=== PATIENT | female | born 2000 | race American Indian/Alaskan Native ===

== ENCOUNTER 2021-05-25 17:19 | Emergency (ER) | payer MEDICAID ==
[2021-05-25 18:34] VITALS: BP 146/60
--- NOTE | 2021-05-25 20:52 | Emergency Department Report ---
ED Abdominal Pain HPI - General Chief Complaint: Abdominal Pain Stated Complaint: ABDOMINAL PAIN Time Seen by Provider: 05/25/21 20:41 Source: patient Mode of arrival: Ambulatory Limitations: No Limitations - History of Present Illness Initial Comments: 20-year-old abdomen female that emerge department complaining of a 2-day history of left lower quadrant abdominal pain which she states may be secondary to constipation as her last bowel movement was A couple days ago. She is also unsure she reports having some nausea but she thinks it was probably secondary to her alcohol binge on this past Tuesday she reports no hemoptysis no hematemesis hematochezia, no diarrhea no no fever, chills, sweats. She reports an uncertainty about at this time. States that this is not her usual urinary tract infection symptoms but she does have a history of recurrent frequent urinary tract infections. MD Complaint: abdominal pain Location: LLQ, suprapubic Radiation: none Migration to: no migration Severity scale (0 -10): 10 Quality: cramping, aching Consistency: constant Improves With: nothing Worsens With: nothing Associated Symptoms: constipation. denies: nausea, diarrhea, hematochezia, hematuria, anorexia - Related Data Previous Rx's Medication Instructions Recorded Last Taken Type Hydrocortisone Acetate [Proctocort 30 mg RC TID #1 tube 10/12/16 Unknown Rx SUPPOS] Hydrocortisone [Proctosol-Hc] 28.35 gm RC TID #1 tube 10/12/16 Unknown Rx Ibuprofen [Motrin 600 MG tab] 600 mg PO Q8H PRN #14 tablet 10/12/16 Unknown Rx polyethylene glycoL 3350 [Miralax 17 gm PO QDAY #1 bottle 10/12/16 Unknown Rx 3350] Lactulose [Cephulac] 30 gm PO Q6HR #450 ml 05/25/21 Unknown Rx Nitrofurantoin Gallia/M-Cryst 100 mg PO Q12HR #20 capsule 05/25/21 Unknown Rx [Macrobid CAP] Phenazopyridine [Pyridium] 200 mg PO TID #9 tab 05/25/21 Unknown Rx ED Review of Systems ROS: Stated complaint: ABDOMINAL PAIN Other details as noted in HPI Comment: All other systems reviewed and negative ED Past Medical Hx - Social History Smoking Status: Never Smoker Substance Use Type: None - Medications Home Medications: Home Medications Medication Instructions Recorded Confirmed Last Taken Type Hydrocortisone Acetate [Proctocort 30 mg RC TID #1 tube 10/12/16 Unknown Rx SUPPOS] Hydrocortisone [Proctosol-Hc] 28.35 gm RC TID #1 tube 10/12/16 Unknown Rx Ibuprofen [Motrin 600 MG tab] 600 mg PO Q8H PRN #14 tablet 10/12/16 Unknown Rx polyethylene glycoL 3350 [Miralax 17 gm PO QDAY #1 bottle 10/12/16 Unknown Rx 3350] Lactulose [Cephulac] 30 gm PO Q6HR #450 ml 05/25/21 Unknown Rx Nitrofurantoin Gallia/M-Cryst 100 mg PO Q12HR #20 capsule 05/25/21 Unknown Rx [Macrobid CAP] Phenazopyridine [Pyridium] 200 mg PO TID #9 tab 05/25/21 Unknown Rx ED Physical Exam - General Limitations: No Limitations General appearance: alert, in no apparent distress - Head Head exam: Present: atraumatic, normocephalic - Eye Eye exam: Present: normal appearance, PERRL, EOMI - ENT ENT exam: Present: normal exam, mucous membranes moist - Neck Neck exam: Present: normal inspection, full ROM, lymphadenopathy - Respiratory Respiratory exam: Present: normal lung sounds bilaterally. Absent: respiratory distress - Cardiovascular Cardiovascular Exam: Present: regular rate, normal rhythm. Absent: systolic murmur, diastolic murmur, rubs, gallop - GI/Abdominal GI/Abdominal exam: Present: soft, normal bowel sounds - Extremities Exam Extremities exam: Present: normal inspection, normal capillary refill - Back Exam Back exam: Present: normal inspection. Absent: CVA tenderness (R), CVA tenderness (L) - Neurological Exam Neurological exam: Present: alert, oriented X3, CN II-XII intact, normal gait - Psychiatric Psychiatric exam: Present: normal affect, normal mood. Absent: anxious, flat affect - Skin Skin exam: Present: warm, dry, intact, normal color. Absent: rash, cyanosis, diaphoretic ED Course Vital Signs 05/25/21 18:30 Pulse Rate 62 Respiratory 18 Rate Blood Pressure 146/60 [Right] O2 Sat by Pulse 100 Oximetry ED Medical Decision Making - Lab Data Result diagrams: 05/25/21 20:51 05/25/21 20:51 - Radiology Data Radiology results: report reviewed [facility] [address] [place] [address] XRay Report Signed Patient: RICH KING MR# : [id number] : 2000 Acct:[id number] Age/Sex: 20 / F ADM Date: 05/25/21 Loc: ED Attending Dr: Ordering Physician: GIOVANI GUZMAN Date of Service: 05/25/21 Procedure(s): XR abd series w cxr 1V Accession Number(s): [id number] cc: GIOVANI GUZMAN Fluoro Time In Minutes: ABDOMEN 2 VIEW WITH PA CHEST, 05/25/2021 INDICATION / CLINICAL INFORMATION: constipation abd pain. COMPARISON: None available. FINDINGS: PA view of the chest is unremarkable. Cardiac silhouette and pulmonary vascularity are normal. Both lungs are well-expanded and are clear. Abdomen supine and erect: Bowel gas pattern demonstrates mild to moderate amount retained stool throughout the colon. The bowel gas pattern is otherwise normal. No free air. IUD is seen in the midline of the pelvis. No abnormal calcifications noted. IMPRESSION: 1. Moderate amount retained stool throughout the colon is suggestive of constipation. 2. No other significant abnormal finding within the chest or abdomen. Signer Name: Lena Bonilla MD Signed: 05/25/2021 10:23 PM Workstation Name: [id number] Transcribed By: JR Dictated By: Lena Bonilla MD Electronically Authenticated By: Lena Bonilla MD Signed Date/Time: 05/25/212222 DD/ 21 TD/TT: - Medical Decision Making This patient presents to the emergency department with symptoms consistent with acute uncomplicated cystitis. No systemic symptoms. Not septic. She is well-appearing. Low suspicion for acute pyelonephritis given the lack of fever, CVA tenderness, or systemic features. Low suspicion for for kidney stone or infected stone. Not in age range for and her history and and presentation are complicated. No no indications for labs or imaging at this time. Critical care attestation.: If time is entered above; I have spent that time in minutes in the direct care of this critically ill patient, excluding procedure time. ED Disposition Clinical Impression: Constipation, UTI (urinary tract infection) Disposition: DC- TO HOME OR SELFCARE Is pt being admited?: No Does the pt Need Aspirin: No Condition: Stable Instructions: Constipation, Adult, Urinary Tract Infection, Adult, Probiotics, Abdominal Pain (ED) Prescriptions: Nitrofurantoin Gallia/M-Cryst [Macrobid CAP] 100 mg PO Q12HR #20 capsule Phenazopyridine [Pyridium] 200 mg PO TID #9 tab Referrals: [facility] [Provider Group] - 3-5 Days [facility], [Primary Care Provider] - 3-5 Days
[2021-05-25 21:19] LABS: Basophils % (Auto) 0.1 % (0.0-1.8); Eosinophils % (Auto) 0.6 % (0.0-4.3); Hematocrit 36.9 % (30.3-42.9); Hemoglobin 12.4 gm/dl (10.1-14.3); Lymphocytes % (Auto) 25.2 % (13.4-35.0); Mean Corpuscular HGB Conc 34 % (30-34); Mean Corpuscular Volume 85 fl (79-97); Monocytes # (Auto) 0.6 K/mm3 (0.0-0.8); Monocytes % (Auto) 8.2 % (0.0-7.3); Platelet Count 276 K/mm3 (140-440); Red Blood Count 4.32 M/mm3 (3.65-5.03); Red Cell Distribution Width 14.9 % (13.2-15.2)
[2021-05-25 21:30] LABS: Alanine Aminotransferase 13 units/L (7-56); Albumin 4.3 g/dL (3.9-5); Blood Urea Nitrogen 9 mg/dL (7-17); Calcium 9.2 mg/dL (8.4-10.2); Hemolysis Index 2
[2021-05-25 21:32] LABS: BUN/Creatinine Ratio 13
[2021-05-25 21:51] LABS: Bacteria,Urine 3+ /HPF (Negative); Bilirubin,Urine NEG (Negative); Blood,Urine LG (Negative); Color,Urine Yellow (Yellow); Mucus,Urine 3+ /HPF; Urobilinogen,Urine < 2.0 mg/dL (<2.0)
--- NOTE | 2021-05-25 22:28 | XRay Report ---
ABDOMEN 2 VIEW WITH PA CHEST, 05/25/2021 INDICATION / CLINICAL INFORMATION: constipation abd pain. COMPARISON: None available. FINDINGS: PA view of the chest is unremarkable. Cardiac silhouette and pulmonary vascularity are normal. Both l ungs are well-expanded and are clear. Abdomen supine and erect: Bowel gas pattern demonstrates mild to moderate amount retained stool throu ghout the colon. The bowel gas pattern is otherwise normal. No free air. IUD is seen in the midline of the pelvis. No abnormal calcifications noted. IMPRESSION: 1. Moderate amount retained stool throughout the colon is suggestive of constipation. 2. No other significant abnormal finding within the chest or abdomen. Signer Name: Lena Bonilla MD Signed: 05/25/2021 10:23 PM Workstation Name: [id number]
== END 2021-05-25 22:52 | disposition home or self-care (01) ==
LOC: ED 17:19
DX: K59.00 Constipation, unspecified (principal); N39.0 Urinary tract infection, site not specified; Z79.899 Other long term (current) drug therapy
CPT/HCPCS: 36415; 74022; 80053; 81001; 83690; 84703; 85025; 87086; 87186; 99283